=== PATIENT | female | born 1940 | race Caucasian/White ===

== ENCOUNTER 2018-01-21 14:33 | Emergency (ER) | payer OTHER, MEDICAID ==
[2018-01-21] MEDS: SOD CHLORIDE 0.9% 1,000 ML IV (20:41)
[2018-01-21] MEDS: ONDANSETRON 4 MG INJ IV (20:42)
[2018-01-21] MEDS: morphine 4 MG/ML VIAL IV (20:42)
[2018-01-21 20:48] LABS: ADD MAN DIFF? NO
[2018-01-21 21:06] LABS: BASOPHIL # 0.1 10^3/ul (0.0-0.1); BASOPHILS % 0.7 % (0.0-2.0); EOSINOPHILS # 0.1 10^3/ul (0.0-0.5); EOSINOPHILS % 1.8 % (0.0-7.0); HEMATOCRIT 35.4 % (37.0-47.0); HEMOGLOBIN 11.8 g/dl (12.0-16.0); LYMPHOCYTES # 3.5 10^3/ul (0.8-2.9); MEAN CORPUSCULAR HEMOGLOBIN 31.5 pg (29.0-33.0); MEAN CORPUSCULAR HGB CONC 33.3 g/dl (32.0-37.0); MEAN CORPUSCULAR VOLUME 94.4 fl (82.0-101.0); MEAN PLATELET VOLUME 9.9 fl (7.4-10.4); MONOCYTE # 0.5 10^3/ul (0.3-0.9); MONOCYTES % 7.1 % (0.0-11.0); NEUTROPHIL # 2.9 10^3/ul (1.6-7.5); NEUTROPHILS % 40.7 % (39.0-77.0); PLATELET COUNT 172 10^3/UL (140-415); RED BLOOD COUNT 3.75 10^6/ul (4.20-5.40)
[2018-01-21 21:06] LABS: WHITE BLOOD COUNT 7.2 10^3/ul (4.8-10.8)
[2018-01-21 21:15] LABS: ANION GAP 16 (8-16); BLOOD UREA NITROGEN 33 mg/dl (7-20); CALCIUM 9.2 mg/dl (8.4-10.2); CARBON DIOXIDE 22 mmol/L (21-31); CHLORIDE 106 mmol/L (97-110); CREATININE 0.74 mg/dl (0.44-1.00); GLUCOSE 73 mg/dl (70-220); POTASSIUM 4.7 mmol/L (3.5-5.1); SODIUM 139 mmol/L (135-144)
[2018-01-21 21:38] LABS: ADD UMIC YES; UR ASCORBIC ACID NEGATIVE (NEGATIVE); UR BACTERIA FEW /HPF (NONE SEEN); UR BILIRUBIN (Dip) NEGATIVE (NEGATIVE); UR BLOOD (Dip) 1+ mg/dL (NEGATIVE); UR CLARITY SLIGHTLY CLOUDY (CLEAR); UR COLOR YELLOW (YELLOW); UR GLUCOSE (Dip) NEGATIVE (NEGATIVE); UR KETONES (Dip) NEGATIVE (NEGATIVE); UR LEUKOCYTE ESTERASE (Dip) 3+ Leu/ul (NEGATIVE); UR MUCUS FEW /HPF (NONE SEEN); UR NITRITE (Dip) NEGATIVE (NEGATIVE); UR RBC 3 /HPF (0-5); UR SPECIFIC GRAVITY (Dip) 1.019 (1.003-1.030); UR SQUAMOUS EPITHELIAL CELL FEW /HPF (FEW); UR TOTAL PROTEIN (Dip) NEGATIVE (NEGATIVE); UR UROBILINOGEN (Dip) NEGATIVE (NEGATIVE); UR WBC 9 /HPF (0-5)
[2018-01-21] MEDS: NITROFURANTOIN (SR) 100 MG CAP PO (22:20)
== END 2018-01-21 23:22 | disposition home or self-care (01) ==
LOC: E/R 14:33
DX: N30.00 Acute cystitis without hematuria (principal); R53.81 Other malaise; R53.83 Other fatigue
CPT/HCPCS: 36415; 80048; 81001; 85025; 96374; 96375; 99284-25

== ENCOUNTER 2018-03-15 21:29 | Inpatient (IN) | payer OTHER ==
[2018-03-16] MEDS ORDERED: ONDANSETRON 4 MG INJ IV
[2018-03-16] MEDS: SOD CHLORIDE 0.9% 1,000 ML IV ×4 (00:24→21:53)
[2018-03-16] MEDS ORDERED: HYDROCODONE/APAP (5/325) TAB PO (00:30)
[2018-03-16 05:31] LABS: ADD MAN DIFF? NO
[2018-03-16 05:36] LABS: WHITE BLOOD COUNT 7.4 10^3/ul (4.8-10.8)
[2018-03-16 05:36] LABS: BASOPHILS % 0.5 % (0.0-2.0); EOSINOPHILS # 0.2 10^3/ul (0.0-0.5); EOSINOPHILS % 2.3 % (0.0-7.0); HEMATOCRIT 38.7 % (37.0-47.0); HEMOGLOBIN 12.6 g/dl (12.0-16.0); LYMPHOCYTES # 2.5 10^3/ul (0.8-2.9); LYMPHOCYTES % 33.9 % (15.0-51.0); MEAN CORPUSCULAR HEMOGLOBIN 30.1 pg (29.0-33.0); MEAN CORPUSCULAR HGB CONC 32.6 g/dl (32.0-37.0); MEAN CORPUSCULAR VOLUME 92.4 fl (82.0-101.0); MEAN PLATELET VOLUME 9.8 fl (7.4-10.4); MONOCYTE # 0.6 10^3/ul (0.3-0.9); MONOCYTES % 7.5 % (0.0-11.0); NEUTROPHIL # 4.1 10^3/ul (1.6-7.5); NEUTROPHILS % 55.4 % (39.0-77.0); PLATELET COUNT 191 10^3/UL (140-415); RED BLOOD COUNT 4.19 10^6/ul (4.20-5.40); RED CELL DISTRIBUTION WIDTH 13.5 % (11.5-14.5)
[2018-03-16] MEDS: PANTOPRAZOLE (EC) 40 MG TAB PO (05:49)
[2018-03-16] MEDS: morphine 2 MG INJ IV ×4 (05:50→17:53)
[2018-03-16 06:05] LABS: ANION GAP 12 (8-16); BLOOD UREA NITROGEN 32 mg/dl (7-20); CALCIUM 8.4 mg/dl (8.4-10.2); CARBON DIOXIDE 21 mmol/L (21-31); CHLORIDE 112 mmol/L (97-110); CREATININE 0.87 mg/dl (0.44-1.00); GLUCOSE 73 mg/dl (70-220); MAGNESIUM 1.9 mg/dl (1.7-2.5); PHOSPHORUS 3.8 mg/dl (2.5-4.9); SODIUM 141 mmol/L (135-144)
[2018-03-16] MEDS: predniSONE 2.5 MG TAB PO (09:18)
[2018-03-16] MEDS: HYDROXYCHLOROQUINE 200 MG TAB PO (09:18)
[2018-03-16] MEDS: CHOLECALCIFEROL 1,000 UNIT TAB PO (09:18)
[2018-03-16] MEDS: CALCIUM/VITAMIN D (500/200) TAB PO ×2 (09:18→20:28)
[2018-03-16] MEDS: ENOXAPARIN 30 MG/0.3 ML SYG SC (09:22)
[2018-03-16 11:06] LABS: HEMOGLOBIN A1C 5.5 % (0-5.9)
[2018-03-16] MEDS ORDERED: BISACODYL (EC) 5 MG TAB PO (11:30)
[2018-03-16 12:17] LABS: ADD UMIC YES; UR ASCORBIC ACID NEGATIVE (NEGATIVE); UR BACTERIA FEW /HPF (NONE SEEN); UR BILIRUBIN (Dip) NEGATIVE (NEGATIVE); UR BLOOD (Dip) 1+ mg/dL (NEGATIVE); UR CLARITY SLIGHTLY CLOUDY (CLEAR); UR COLOR YELLOW (YELLOW); UR GLUCOSE (Dip) NEGATIVE (NEGATIVE); UR KETONES (Dip) NEGATIVE (NEGATIVE); UR LEUKOCYTE ESTERASE (Dip) 3+ Leu/ul (NEGATIVE); UR NITRITE (Dip) NEGATIVE (NEGATIVE); UR RBC 17 /HPF (0-5); UR SPECIFIC GRAVITY (Dip) 1.015 (1.003-1.030); UR SQUAMOUS EPITHELIAL CELL FEW /HPF (FEW); UR TOTAL PROTEIN (Dip) NEGATIVE (NEGATIVE); UR UROBILINOGEN (Dip) NEGATIVE (NEGATIVE); UR WBC 21 /HPF (0-5)
[2018-03-16 13:12] LABS: CHOLESTEROL 144 mg/dl (100-200)
[2018-03-16 13:12] LABS: CHOL/HDL RATIO 2.2 RATIO; HDL CHOLESTEROL 65 mg/dl (33-92); LDL CHOLESTEROL,CALCULATED 62 mg/dl; TRIGLYCERIDES 85 mg/dl (0-149)
[2018-03-16] MEDS: CEFTRIAXONE 1 GM/50 ML (PMX) 50 ML IVPB (13:16)
[2018-03-16] MEDS: POLYETHYLENE GLYCOL 17 GM PACKET PO ×2 (13:16→20:28)
[2018-03-16] MEDS ORDERED: HEPARIN 5,000 UNIT/0.5 ML VIAL SC (14:00)
[2018-03-16] MEDS: morphine LIQ (10 MG/5 ML) CUP PO ×2 (20:28→21:53)
[2018-03-17] MEDS: morphine LIQ (10 MG/5 ML) CUP PO ×5 (05:30→23:36)
[2018-03-17] MEDS: PANTOPRAZOLE (EC) 40 MG TAB PO (05:30)
[2018-03-17 05:33] LABS: ADD MAN DIFF? NO
[2018-03-17 05:37] LABS: WHITE BLOOD COUNT 6.6 10^3/ul (4.8-10.8)
[2018-03-17 05:37] LABS: BASOPHILS % 0.5 % (0.0-2.0); EOSINOPHILS # 0.2 10^3/ul (0.0-0.5); EOSINOPHILS % 2.7 % (0.0-7.0); HEMATOCRIT 37.8 % (37.0-47.0); HEMOGLOBIN 12.3 g/dl (12.0-16.0); LYMPHOCYTES # 2.4 10^3/ul (0.8-2.9); LYMPHOCYTES % 36.4 % (15.0-51.0); MEAN CORPUSCULAR HEMOGLOBIN 30.7 pg (29.0-33.0); MEAN CORPUSCULAR HGB CONC 32.5 g/dl (32.0-37.0); MEAN CORPUSCULAR VOLUME 94.3 fl (82.0-101.0); MEAN PLATELET VOLUME 9.6 fl (7.4-10.4); MONOCYTE # 0.6 10^3/ul (0.3-0.9); MONOCYTES % 8.3 % (0.0-11.0); NEUTROPHIL # 3.4 10^3/ul (1.6-7.5); NEUTROPHILS % 51.8 % (39.0-77.0); PLATELET COUNT 183 10^3/UL (140-415); RED BLOOD COUNT 4.01 10^6/ul (4.20-5.40); RED CELL DISTRIBUTION WIDTH 13.1 % (11.5-14.5)
[2018-03-17 05:57] LABS: PHOSPHORUS 2.4 mg/dl (2.5-4.9)
[2018-03-17 05:57] LABS: MAGNESIUM 1.6 mg/dl (1.7-2.5)
[2018-03-17 06:10] LABS: ANION GAP 11 (8-16); BLOOD UREA NITROGEN 13 mg/dl (7-20); CALCIUM 8.6 mg/dl (8.4-10.2); CARBON DIOXIDE 21 mmol/L (21-31); CHLORIDE 112 mmol/L (97-110); CREATININE 0.59 mg/dl (0.44-1.00); GLUCOSE 73 mg/dl (70-220); POTASSIUM 4.1 mmol/L (3.5-5.1); SODIUM 140 mmol/L (135-144)
[2018-03-17] MEDS: CALCIUM/VITAMIN D (500/200) TAB PO ×2 (09:32→20:13)
[2018-03-17] MEDS: POLYETHYLENE GLYCOL 17 GM PACKET PO ×2 (09:32→20:13)
[2018-03-17] MEDS: predniSONE 2.5 MG TAB PO (09:32)
[2018-03-17] MEDS: HYDROXYCHLOROQUINE 200 MG TAB PO (09:33)
[2018-03-17] MEDS: CHOLECALCIFEROL 1,000 UNIT TAB PO (09:33)
[2018-03-17] MEDS: ENOXAPARIN 30 MG/0.3 ML SYG SC (09:41)
[2018-03-17] MEDS: SOD CHLORIDE 0.9% 1,000 ML IV ×2 (09:42→16:00)
[2018-03-17] MEDS: AMLODIPINE 2.5 MG TAB PO (11:30)
[2018-03-17] MEDS: MAGNESIUM SULFATE 2 GM/50 ML 50 ML IVPB (14:42)
[2018-03-18] MEDS: SOD CHLORIDE 0.9% 1,000 ML IV ×3 (02:00→12:59)
[2018-03-18] MEDS: morphine LIQ (10 MG/5 ML) CUP PO ×4 (02:49→13:56)
[2018-03-18] MEDS: PANTOPRAZOLE (EC) 40 MG TAB PO (05:52)
[2018-03-18 06:51] LABS: ADD MAN DIFF? NO
[2018-03-18 07:02] LABS: BASOPHILS % 0.3 % (0.0-2.0); EOSINOPHILS # 0.2 10^3/ul (0.0-0.5); EOSINOPHILS % 3.2 % (0.0-7.0); HEMATOCRIT 37.2 % (37.0-47.0); HEMOGLOBIN 12.1 g/dl (12.0-16.0); LYMPHOCYTES # 2.9 10^3/ul (0.8-2.9); LYMPHOCYTES % 39.2 % (15.0-51.0); MEAN CORPUSCULAR HEMOGLOBIN 29.9 pg (29.0-33.0); MEAN CORPUSCULAR HGB CONC 32.5 g/dl (32.0-37.0); MEAN CORPUSCULAR VOLUME 91.9 fl (82.0-101.0); MEAN PLATELET VOLUME 9.9 fl (7.4-10.4); MONOCYTE # 0.6 10^3/ul (0.3-0.9); MONOCYTES % 8.5 % (0.0-11.0); NEUTROPHIL # 3.6 10^3/ul (1.6-7.5); NEUTROPHILS % 48.4 % (39.0-77.0); PLATELET COUNT 192 10^3/UL (140-415); RED BLOOD COUNT 4.05 10^6/ul (4.20-5.40); RED CELL DISTRIBUTION WIDTH 12.9 % (11.5-14.5)
[2018-03-18 07:02] LABS: WHITE BLOOD COUNT 7.4 10^3/ul (4.8-10.8)
[2018-03-18 07:19] LABS: MAGNESIUM 1.9 mg/dl (1.7-2.5)
[2018-03-18 07:19] LABS: PHOSPHORUS 2.5 mg/dl (2.5-4.9)
[2018-03-18 07:22] LABS: ANION GAP 12 (8-16); BLOOD UREA NITROGEN 5 mg/dl (7-20); CALCIUM 8.5 mg/dl (8.4-10.2); CARBON DIOXIDE 26 mmol/L (21-31); CHLORIDE 108 mmol/L (97-110); CREATININE 0.57 mg/dl (0.44-1.00); GLUCOSE 75 mg/dl (70-220); POTASSIUM 3.8 mmol/L (3.5-5.1); SODIUM 142 mmol/L (135-144)
[2018-03-18] MEDS: POLYETHYLENE GLYCOL 17 GM PACKET PO (08:19)
[2018-03-18] MEDS: AMLODIPINE 2.5 MG TAB PO (08:19)
[2018-03-18] MEDS: CALCIUM/VITAMIN D (500/200) TAB PO (08:19)
[2018-03-18] MEDS: HYDROXYCHLOROQUINE 200 MG TAB PO (08:19)
[2018-03-18] MEDS: predniSONE 2.5 MG TAB PO (08:19)
[2018-03-18] MEDS: CHOLECALCIFEROL 1,000 UNIT TAB PO (08:19)
[2018-03-18] MEDS: ENOXAPARIN 30 MG/0.3 ML SYG SC (08:22)
[2018-03-20] MEDS ORDERED: ALENDRONATE 70 MG TAB PO (07:00)
== END 2018-03-18 16:50 | disposition home health service (06) | DRG 683 ==
LOC: PP2 21:29
DX: N17.9 Acute kidney failure, unspecified (principal); Z68.41 Body mass index [BMI] 40.0-44.9, adult; E66.9 Obesity, unspecified; M06.9 Rheumatoid arthritis, unspecified; M81.0 Age-related osteoporosis without current pathological fracture; Z87.442 Personal history of urinary calculi; E78.5 Hyperlipidemia, unspecified; I10 Essential (primary) hypertension; R82.79 Other abnormal findings on microbiological examination of urine; G89.29 Other chronic pain
CPT/HCPCS: 80048; 80061; 81001; 83036; 83735; 84100; 85025; 87086; 97162

== ENCOUNTER 2018-07-17 15:29 | Emergency (ER) | payer OTHER ==
[2018-07-17] MEDS: CEFTRIAXONE 1 GM/50 ML (PMX) 50 ML IVPB (17:00)
[2018-07-17] MEDS: morphine 4 MG/ML VIAL IV (17:00)
[2018-07-17] MEDS: ONDANSETRON 4 MG INJ IV (17:01)
[2018-07-17] MEDS: SOD CHLORIDE 0.9% 500 ML IV (17:01)
[2018-07-17 17:18] LABS: ADD MAN DIFF? NO
[2018-07-17 17:19] LABS: WHITE BLOOD COUNT 7.6 10^3/ul (4.8-10.8)
[2018-07-17 17:19] LABS: BASOPHILS % 0.4 % (0.0-2.0); EOSINOPHILS # 0.1 10^3/ul (0.0-0.5); EOSINOPHILS % 1.2 % (0.0-7.0); HEMATOCRIT 38.6 % (37.0-47.0); HEMOGLOBIN 13.2 g/dl (12.0-16.0); LYMPHOCYTES # 2.3 10^3/ul (0.8-2.9); LYMPHOCYTES % 30.6 % (15.0-51.0); MEAN CORPUSCULAR HEMOGLOBIN 31.7 pg (29.0-33.0); MEAN CORPUSCULAR HGB CONC 34.2 g/dl (32.0-37.0); MEAN CORPUSCULAR VOLUME 92.6 fl (82.0-101.0); MEAN PLATELET VOLUME 9.2 fl (7.4-10.4); MONOCYTE # 0.7 10^3/ul (0.3-0.9); MONOCYTES % 9.2 % (0.0-11.0); NEUTROPHIL # 4.4 10^3/ul (1.6-7.5); NEUTROPHILS % 58.1 % (39.0-77.0); PLATELET COUNT 186 10^3/UL (140-415); RED BLOOD COUNT 4.17 10^6/ul (4.20-5.40); RED CELL DISTRIBUTION WIDTH 13.3 % (11.5-14.5)
[2018-07-17 17:23] LABS: ADD UMIC YES; UR ASCORBIC ACID NEGATIVE (NEGATIVE); UR BILIRUBIN (Dip) NEGATIVE (NEGATIVE); UR BLOOD (Dip) 1+ mg/dL (NEGATIVE); UR CLARITY SLIGHTLY CLOUDY (CLEAR); UR COLOR YELLOW (YELLOW); UR GLUCOSE (Dip) NEGATIVE (NEGATIVE); UR KETONES (Dip) NEGATIVE (NEGATIVE); UR LEUKOCYTE ESTERASE (Dip) NEGATIVE Leu/ul (NEGATIVE); UR MUCUS FEW /HPF (NONE SEEN); UR NITRITE (Dip) NEGATIVE (NEGATIVE); UR RBC 6 /HPF (0-5); UR SPECIFIC GRAVITY (Dip) 1.013 (1.003-1.030); UR SQUAMOUS EPITHELIAL CELL FEW /HPF (FEW); UR TOTAL PROTEIN (Dip) NEGATIVE (NEGATIVE); UR UROBILINOGEN (Dip) 1+ mg/dL (NEGATIVE); UR WBC 4 /HPF (0-5)
[2018-07-17 17:38] LABS: ALANINE AMINOTRANSFERASE 23 IU/L (13-69); ALBUMIN 3.3 g/dl (3.3-4.9); ALBUMIN/GLOBULIN RATIO 1.13; ALKALINE PHOSPHATASE 52 IU/L (42-121); ANION GAP 6 (5-13); ASPARTATE AMINO TRANSFERASE 27 IU/L (15-46); BILIRUBIN,INDIRECT 0.6 mg/dl (0-1.1); BILIRUBIN,TOTAL 0.6 mg/dl (0.2-1.3); BLOOD UREA NITROGEN 20 mg/dl (7-20); CALCIUM 9.4 mg/dl (8.4-10.2); CARBON DIOXIDE 26 mmol/L (21-31); CHLORIDE 105 mmol/L (97-110); CREATININE 0.55 mg/dl (0.44-1.00); GLUCOSE 105 mg/dl (70-220); INR 0.93; LIPASE 53 U/L (23-300); POTASSIUM 3.6 mmol/L (3.5-5.1); PROTIME 12.5 Sec (11.9-14.9); SODIUM 137 mmol/L (135-144); TOTAL PROTEIN 6.2 g/dl (6.1-8.1)
[2018-07-17 17:39] LABS: PARTIAL THROMBOPLASTIN TIME 25.5 Sec (23.0-35.0)
[2018-07-17 17:50] LABS: TROPONIN-I < 0.012 ng/ml (0.000-0.120)
== END 2018-07-17 19:06 | disposition home or self-care (01) ==
LOC: E/R 15:29
DX: M80.00XA Age-related osteoporosis with current pathological fracture, unspecified site, initial encounter for fracture (principal); G89.29 Other chronic pain; N39.0 Urinary tract infection, site not specified; E86.0 Dehydration; I10 Essential (primary) hypertension
CPT/HCPCS: 36415; 51702; 71045; 80053; 81001; 83690; 84484; 85025; 85610; 85730; 87086; 93005; 96374; 96375; 99285-25

== ENCOUNTER 2018-11-09 13:18 | Emergency (ER) | payer OTHER ==
[2018-11-09] MEDS: KETOROLAC 30 MG INJ IM (13:26)
[2018-11-09] MEDS: ONDANSETRON (ODT) 4 MG TAB ODT (13:45)
[2018-11-09] MEDS: HYDROCODONE/APAP (10/325) TAB PO (14:00)
== END 2018-11-09 19:25 | disposition home or self-care (01) ==
LOC: E/R 13:18
DX: R51 Headache (principal); I10 Essential (primary) hypertension
CPT/HCPCS: 70450; 96372; 99285-25

== ENCOUNTER 2018-11-12 13:21 | Inpatient (IN) | payer OTHER ==
[2018-11-12] MEDS ORDERED: NACL 0.9% 3 ML SYG IV (14:30)
[2018-11-12] MEDS ORDERED: ONDANSETRON 4 MG INJ IV ×2 (14:30)
[2018-11-12] MEDS ORDERED: ACETAMINOPHEN 325 MG TAB PO ×2 (14:30)
[2018-11-12 14:43] LABS: ADD MAN DIFF? NO
[2018-11-12 14:46] LABS: WHITE BLOOD COUNT 8.5 10^3/ul (4.8-10.8)
[2018-11-12 14:46] LABS: BASOPHIL # 0.1 10^3/ul (0.0-0.1); BASOPHILS % 0.7 % (0.0-2.0); EOSINOPHILS # 0.1 10^3/ul (0.0-0.5); EOSINOPHILS % 0.8 % (0.0-7.0); HEMATOCRIT 41.6 % (37.0-47.0); HEMOGLOBIN 13.3 g/dl (12.0-16.0); LYMPHOCYTES # 2.6 10^3/ul (0.8-2.9); LYMPHOCYTES % 30.5 % (15.0-51.0); MEAN CORPUSCULAR HEMOGLOBIN 30.8 pg (29.0-33.0); MEAN CORPUSCULAR VOLUME 96.3 fl (82.0-101.0); MEAN PLATELET VOLUME 8.9 fl (7.4-10.4); MONOCYTE # 0.8 10^3/ul (0.3-0.9); MONOCYTES % 9.2 % (0.0-11.0); NEUTROPHIL # 4.8 10^3/ul (1.6-7.5); PLATELET COUNT 190 10^3/UL (140-415); RED BLOOD COUNT 4.32 10^6/ul (4.20-5.40); RED CELL DISTRIBUTION WIDTH 13.9 % (11.5-14.5)
[2018-11-12] MEDS: METOCLOPRAMIDE 10 MG INJ IV (14:59)
[2018-11-12] MEDS: KETOROLAC 30 MG INJ IV (14:59)
[2018-11-12 15:05] LABS: INR 0.85; PROTIME 11.7 Sec (11.9-14.9); PT RATIO 0.9
[2018-11-12 15:06] LABS: ANION GAP 7 (5-13); BLOOD UREA NITROGEN 19 mg/dl (7-20); CALCIUM 9.4 mg/dl (8.4-10.2); CARBON DIOXIDE 24 mmol/L (21-31); CHLORIDE 105 mmol/L (97-110); CREATININE 0.73 mg/dl (0.44-1.00); GLUCOSE 108 mg/dl (70-220); PARTIAL THROMBOPLASTIN TIME 27.7 Sec (23.0-35.0); POTASSIUM 4.1 mmol/L (3.5-5.1); SODIUM 136 mmol/L (135-144)
[2018-11-12] MEDS: SOD CHLORIDE 0.9% 500 ML IV (15:09)
[2018-11-12 15:29] LABS: ADD UMIC YES; UR ASCORBIC ACID NEGATIVE (NEGATIVE); UR BACTERIA FEW /HPF (NONE SEEN); UR BILIRUBIN (Dip) 2+ mg/dL (NEGATIVE); UR BLOOD (Dip) 1+ mg/dL (NEGATIVE); UR CLARITY SLIGHTLY CLOUDY (CLEAR); UR COLOR AMBER (YELLOW); UR GLUCOSE (Dip) NEGATIVE (NEGATIVE); UR KETONES (Dip) TRACE mg/dL (NEGATIVE); UR LEUKOCYTE ESTERASE (Dip) NEGATIVE Leu/ul (NEGATIVE); UR MUCUS MANY /HPF (NONE SEEN); UR NITRITE (Dip) POSITIVE (NEGATIVE); UR RBC 6 /HPF (0-5); UR SPECIFIC GRAVITY (Dip) 1.029 (1.003-1.030); UR SQUAMOUS EPITHELIAL CELL FEW /HPF (FEW); UR TOTAL PROTEIN (Dip) NEGATIVE (NEGATIVE); UR UROBILINOGEN (Dip) NEGATIVE (NEGATIVE); UR WBC 2 /HPF (0-5)
[2018-11-12] MEDS: FENTAnyl 50 MCG/ML VIAL IV (15:30)
[2018-11-12] MEDS ORDERED: GUAIFENESIN/DM 5ML CUP PO (17:00)
[2018-11-12] MEDS: HYDROCODONE/APAP (5/325) TAB PO ×2 (17:54→21:54)
[2018-11-12] MEDS: SENNA TAB PO (21:53)
[2018-11-13] MEDS: HYDROCODONE/APAP (5/325) TAB PO ×5 (02:01→21:39)
[2018-11-13] MEDS: PANTOPRAZOLE (EC) 40 MG TAB PO (06:07)
[2018-11-13 06:59] LABS: ADD MAN DIFF? NO
[2018-11-13 07:07] LABS: BASOPHILS % 0.5 % (0.0-2.0); EOSINOPHILS # 0.1 10^3/ul (0.0-0.5); EOSINOPHILS % 1.2 % (0.0-7.0); HEMATOCRIT 37.2 % (37.0-47.0); HEMOGLOBIN 12.1 g/dl (12.0-16.0); LYMPHOCYTES # 2.7 10^3/ul (0.8-2.9); LYMPHOCYTES % 33.3 % (15.0-51.0); MEAN CORPUSCULAR HEMOGLOBIN 30.8 pg (29.0-33.0); MEAN CORPUSCULAR HGB CONC 32.5 g/dl (32.0-37.0); MEAN CORPUSCULAR VOLUME 94.7 fl (82.0-101.0); MEAN PLATELET VOLUME 9.2 fl (7.4-10.4); MONOCYTE # 0.6 10^3/ul (0.3-0.9); MONOCYTES % 7.7 % (0.0-11.0); NEUTROPHIL # 4.5 10^3/ul (1.6-7.5); NEUTROPHILS % 55.8 % (39.0-77.0); PLATELET COUNT 210 10^3/UL (140-415); RED BLOOD COUNT 3.93 10^6/ul (4.20-5.40); RED CELL DISTRIBUTION WIDTH 13.7 % (11.5-14.5)
[2018-11-13 07:07] LABS: WHITE BLOOD COUNT 8.1 10^3/ul (4.8-10.8)
[2018-11-13 07:30] LABS: ALANINE AMINOTRANSFERASE 25 IU/L (13-69); ALBUMIN 3.1 g/dl (3.3-4.9); ALBUMIN/GLOBULIN RATIO 1.14; ALKALINE PHOSPHATASE 91 IU/L (42-121); ANION GAP 8 (5-13); ASPARTATE AMINO TRANSFERASE 35 IU/L (15-46); BILIRUBIN,INDIRECT 0.5 mg/dl (0-1.1); BILIRUBIN,TOTAL 0.5 mg/dl (0.2-1.3); BLOOD UREA NITROGEN 22 mg/dl (7-20); CALCIUM 8.9 mg/dl (8.4-10.2); CARBON DIOXIDE 25 mmol/L (21-31); CHLORIDE 104 mmol/L (97-110); CHOL/HDL RATIO 2.5 RATIO; CHOLESTEROL 148 mg/dl (100-200); CREATININE 0.66 mg/dl (0.44-1.00); GLUCOSE 91 mg/dl (70-220); HDL CHOLESTEROL 57 mg/dl (33-92); LDL CHOLESTEROL,CALCULATED 69 mg/dl; MAGNESIUM 1.9 mg/dl (1.7-2.5); PHOSPHORUS 3.4 mg/dl (2.5-4.9); SODIUM 137 mmol/L (135-144); TOTAL PROTEIN 5.8 g/dl (6.1-8.1); TRIGLYCERIDES 111 mg/dl (0-149)
[2018-11-13 07:30] LABS: HEMOGLOBIN A1C 5.3 % (0-5.9)
[2018-11-13] MEDS: predniSONE 5 MG TAB PO (09:02)
[2018-11-13] MEDS: AMLODIPINE 2.5 MG TAB PO (09:02)
[2018-11-13] MEDS: HYDROXYCHLOROQUINE 200 MG TAB PO (09:02)
[2018-11-13] MEDS: morphine 2 MG INJ IV (15:35)
[2018-11-13] MEDS: SENNA TAB PO (21:39)
[2018-11-14] MEDS: HYDROCODONE/APAP (5/325) TAB PO ×2 (02:36→06:31)
[2018-11-14] MEDS: morphine 2 MG INJ IV ×2 (04:39→07:51)
[2018-11-14] MEDS: PANTOPRAZOLE (EC) 40 MG TAB PO (06:31)
[2018-11-14] MEDS: IBUPROFEN 400 MG TAB PO ×2 (08:43→16:11)
[2018-11-14] MEDS: predniSONE 5 MG TAB PO (08:43)
[2018-11-14] MEDS: AMLODIPINE 2.5 MG TAB PO (08:43)
[2018-11-14] MEDS: KETOROLAC 30 MG INJ IV (12:20)
[2018-11-14] MEDS: GABAPENTIN 100 MG CAP PO ×2 (12:20→20:58)
[2018-11-14] MEDS: HYDROXYCHLOROQUINE 200 MG TAB PO (12:20)
[2018-11-14] MEDS: MECLIZINE 12.5 MG TAB PO ×3 (12:20→23:30)
[2018-11-14] MEDS: predniSONE 20 MG TAB PO (12:21)
[2018-11-14] MEDS: HEPARIN 5,000 UNIT/1 ML VIAL SC ×2 (12:32→21:03)
[2018-11-14] MEDS: HYDROCODONE/APAP (10/325) TAB PO (14:37)
[2018-11-14] MEDS: SENNA TAB PO (20:58)
[2018-11-14] MEDS: morphine (ER) 15 MG TAB PO (20:58)
[2018-11-15] MEDS: HYDROCODONE/APAP (10/325) TAB PO ×2 (03:21→12:32)
[2018-11-15] MEDS: PANTOPRAZOLE (EC) 40 MG TAB PO (05:50)
[2018-11-15] MEDS: MECLIZINE 12.5 MG TAB PO ×4 (05:50→22:45)
[2018-11-15] MEDS: HYDROXYCHLOROQUINE 200 MG TAB PO (08:45)
[2018-11-15] MEDS: AMLODIPINE 2.5 MG TAB PO (08:45)
[2018-11-15] MEDS: morphine (ER) 15 MG TAB PO (08:45)
[2018-11-15] MEDS: GABAPENTIN 100 MG CAP PO ×3 (08:45→22:46)
[2018-11-15] MEDS: predniSONE 20 MG TAB PO (08:46)
[2018-11-15] MEDS: ENOXAPARIN 40 MG/0.4 ML SYG SC (08:51)
[2018-11-15] MEDS: IBUPROFEN 400 MG TAB PO (09:52)
[2018-11-15 10:41] LABS: ADD MAN DIFF? NO
[2018-11-15 10:43] LABS: BASOPHILS % 0.3 % (0.0-2.0); EOSINOPHILS % 0.2 % (0.0-7.0); HEMATOCRIT 35.3 % (37.0-47.0); HEMOGLOBIN 11.7 g/dl (12.0-16.0); LYMPHOCYTES # 1.9 10^3/ul (0.8-2.9); MEAN CORPUSCULAR HEMOGLOBIN 30.9 pg (29.0-33.0); MEAN CORPUSCULAR HGB CONC 33.1 g/dl (32.0-37.0); MEAN CORPUSCULAR VOLUME 93.1 fl (82.0-101.0); MEAN PLATELET VOLUME 8.9 fl (7.4-10.4); MONOCYTE # 0.7 10^3/ul (0.3-0.9); MONOCYTES % 6.9 % (0.0-11.0); NEUTROPHILS % 72.1 % (39.0-77.0); PLATELET COUNT 245 10^3/UL (140-415); RED BLOOD COUNT 3.79 10^6/ul (4.20-5.40); RED CELL DISTRIBUTION WIDTH 13.4 % (11.5-14.5)
[2018-11-15 10:43] LABS: WHITE BLOOD COUNT 9.7 10^3/ul (4.8-10.8)
[2018-11-15] MEDS: KETOROLAC 30 MG INJ IV (10:56)
[2018-11-15 11:00] LABS: ALANINE AMINOTRANSFERASE 22 IU/L (13-69); ALBUMIN/GLOBULIN RATIO 1.07; ALKALINE PHOSPHATASE 77 IU/L (42-121); ANION GAP 8 (5-13); ASPARTATE AMINO TRANSFERASE 30 IU/L (15-46); BILIRUBIN,INDIRECT 0.4 mg/dl (0-1.1); BILIRUBIN,TOTAL 0.4 mg/dl (0.2-1.3); BLOOD UREA NITROGEN 18 mg/dl (7-20); CALCIUM 9.4 mg/dl (8.4-10.2); CARBON DIOXIDE 26 mmol/L (21-31); CHLORIDE 104 mmol/L (97-110); CREATININE 0.55 mg/dl (0.44-1.00); GLUCOSE 117 mg/dl (70-220); POTASSIUM 4.3 mmol/L (3.5-5.1); SODIUM 138 mmol/L (135-144); TOTAL PROTEIN 5.8 g/dl (6.1-8.1)
[2018-11-15] MEDS: HYDROmorphONE 4 MG TAB PO (14:44)
[2018-11-15] MEDS: POLYETHYLENE GLYCOL 17 GM PACKET PO (22:45)
[2018-11-15] MEDS: SENNA TAB PO (22:46)
[2018-11-15] MEDS: morphine (ER) 30 MG TAB PO (22:46)
[2018-11-15] MEDS: DOCUSATE SODIUM 100 MG CAP PO (22:46)
[2018-11-16] MEDS: HYDROmorphONE 4 MG TAB PO ×2 (03:27→07:08)
[2018-11-16] MEDS: MECLIZINE 12.5 MG TAB PO (03:27)
[2018-11-16] MEDS: PANTOPRAZOLE (EC) 40 MG TAB PO (07:08)
[2018-11-16] MEDS ORDERED: POLYETHYLENE GLYCOL 17 GM PACKET PO (09:00)
[2018-11-16] MEDS: morphine (ER) 30 MG TAB PO ×2 (09:00→09:49)
[2018-11-16] MEDS: GABAPENTIN 100 MG CAP PO ×3 (09:48→20:30)
[2018-11-16] MEDS: DOCUSATE SODIUM 100 MG CAP PO ×2 (09:48→20:30)
[2018-11-16] MEDS: predniSONE 20 MG TAB PO (09:49)
[2018-11-16] MEDS: AMLODIPINE 2.5 MG TAB PO (09:49)
[2018-11-16] MEDS: POLYETHYLENE GLYCOL 17 GM PACKET PO (09:49)
[2018-11-16] MEDS: ENOXAPARIN 40 MG/0.4 ML SYG SC (09:54)
[2018-11-16] MEDS: NEOMYC/POLYMYX/HC 10 ML OTIC SUSP LEFT EAR ×2 (10:30→13:41)
[2018-11-16] MEDS: KETOROLAC 15 MG INJ IV ×2 (10:44→20:34)
[2018-11-16] MEDS: CIPROFLOXACIN HCL OTIC DROP 0.25 ML RIGHT EAR ×2 (11:00→20:36)
[2018-11-16] MEDS: NEOMYC/POLYMYX/HC 10 ML OTIC SUSP RIGHT EAR ×3 (13:00→20:36)
[2018-11-16] MEDS: HYDROXYCHLOROQUINE 200 MG TAB PO (13:38)
[2018-11-16] MEDS ORDERED: LORAZEPAM 2 MG INJ IV (14:00)
[2018-11-16] MEDS: SENNA TAB PO (20:30)
[2018-11-16] MEDS: traMADol 50 MG TAB PO (23:09)
[2018-11-17] MEDS: traMADol 50 MG TAB PO ×3 (06:00→21:18)
[2018-11-17] MEDS: PANTOPRAZOLE (EC) 40 MG TAB PO (06:00)
[2018-11-17] MEDS: GABAPENTIN 100 MG CAP PO ×3 (08:15→21:19)
[2018-11-17] MEDS: DOCUSATE SODIUM 100 MG CAP PO ×2 (08:15→21:00)
[2018-11-17] MEDS: HYDROXYCHLOROQUINE 200 MG TAB PO (08:16)
[2018-11-17] MEDS: AMLODIPINE 2.5 MG TAB PO (08:17)
[2018-11-17] MEDS: POLYETHYLENE GLYCOL 17 GM PACKET PO (08:17)
[2018-11-17] MEDS: CIPROFLOXACIN HCL OTIC DROP 0.25 ML RIGHT EAR ×2 (08:17→21:00)
[2018-11-17] MEDS: ENOXAPARIN 40 MG/0.4 ML SYG SC (08:19)
[2018-11-17] MEDS: NEOMYC/POLYMYX/HC 10 ML OTIC SUSP RIGHT EAR ×4 (08:20→21:00)
[2018-11-17] MEDS: KETOROLAC 15 MG INJ IV ×3 (08:35→23:48)
[2018-11-17] MEDS: SENNA TAB PO (21:00)
[2018-11-18] MEDS: traMADol 50 MG TAB PO ×5 (03:31→22:53)
[2018-11-18] MEDS: PANTOPRAZOLE (EC) 40 MG TAB PO (05:48)
[2018-11-18] MEDS: GABAPENTIN 100 MG CAP PO ×3 (08:14→21:46)
[2018-11-18] MEDS: HYDROXYCHLOROQUINE 200 MG TAB PO (08:14)
[2018-11-18] MEDS: AMLODIPINE 2.5 MG TAB PO (08:14)
[2018-11-18] MEDS: DOCUSATE SODIUM 100 MG CAP PO ×2 (08:15→21:45)
[2018-11-18] MEDS: POLYETHYLENE GLYCOL 17 GM PACKET PO ×2 (08:15→08:22)
[2018-11-18] MEDS: KETOROLAC 15 MG INJ IV ×2 (08:16→18:17)
[2018-11-18] MEDS: ENOXAPARIN 40 MG/0.4 ML SYG SC (08:22)
[2018-11-18] MEDS: CIPROFLOXACIN HCL OTIC DROP 0.25 ML RIGHT EAR ×2 (08:32→21:46)
[2018-11-18] MEDS: NEOMYC/POLYMYX/HC 10 ML OTIC SUSP RIGHT EAR ×4 (08:38→21:47)
[2018-11-18] MEDS: PREDNISOLONE ACET 1% 5 ML OPH RIGHT EAR ×2 (13:51→21:46)
[2018-11-18] MEDS: SENNA TAB PO (21:45)
[2018-11-19] MEDS: KETOROLAC 15 MG INJ IV ×3 (00:19→15:33)
[2018-11-19] MEDS: ACETAMINOPHEN 1000MG/100ML IV 100 ML IVPB (03:40)
[2018-11-19] MEDS: PANTOPRAZOLE (EC) 40 MG TAB PO (06:10)
[2018-11-19] MEDS: traMADol 50 MG TAB PO ×2 (06:11→12:16)
[2018-11-19] MEDS: HYDROXYCHLOROQUINE 200 MG TAB PO (09:11)
[2018-11-19] MEDS: GABAPENTIN 100 MG CAP PO ×2 (09:12→13:34)
[2018-11-19] MEDS: POLYETHYLENE GLYCOL 17 GM PACKET PO (09:12)
[2018-11-19] MEDS: DOCUSATE SODIUM 100 MG CAP PO (09:12)
[2018-11-19] MEDS: ENOXAPARIN 40 MG/0.4 ML SYG SC (09:14)
[2018-11-19] MEDS: NEOMYC/POLYMYX/HC 10 ML OTIC SUSP RIGHT EAR ×2 (09:15→13:35)
[2018-11-19] MEDS: PREDNISOLONE ACET 1% 5 ML OPH RIGHT EAR (09:15)
[2018-11-19] MEDS: AMLODIPINE 2.5 MG TAB PO (09:43)
[2018-11-19] MEDS: CIPROFLOXACIN HCL OTIC DROP 0.25 ML RIGHT EAR (10:56)
== END 2018-11-19 15:55 | DRG 156 ==
LOC: MS1 11-16 07:52 → E/R 13:21 → TEL 14:01
PROC: 09C37ZZ Extirpation of Matter from Right External Auditory Canal, Via Natural or Artificial Opening (ICD-10-PCS; principal; 2018-11-17)
DX: H60.90 Unspecified otitis externa, unspecified ear (principal); R42 Dizziness and giddiness; R51 Headache; H61.21 Impacted cerumen, right ear; I10 Essential (primary) hypertension; M47.812 Spondylosis without myelopathy or radiculopathy, cervical region; M06.9 Rheumatoid arthritis, unspecified; Z86.718 Personal history of other venous thrombosis and embolism; Z79.52 Long term (current) use of systemic steroids; Z79.01 Long term (current) use of anticoagulants
CPT/HCPCS: 70450; 71045; 72125; 72141; 80048; 80053; 80061; 81001; 83036; 83735; 84100; 84443; 85025; 85610; 85730; 87081; 92610; 93005; 99285-25

== ENCOUNTER 2018-11-24 09:37 | Inpatient (IN) | payer OTHER ==
[2018-11-24] MEDS: LORAZEPAM 2 MG INJ IV ×2 (10:06→12:29)
[2018-11-24] MEDS: KETOROLAC 15 MG INJ IV (10:06)
[2018-11-24] MEDS: SOD CHLORIDE 0.9% 1,000 ML IV ×2 (10:07→15:43)
[2018-11-24 10:25] LABS: ADD MAN DIFF? NO
[2018-11-24 10:27] LABS: BASOPHIL # 0.1 10^3/ul (0.0-0.1); BASOPHILS % 0.5 % (0.0-2.0); EOSINOPHILS # 0.1 10^3/ul (0.0-0.5); EOSINOPHILS % 1.1 % (0.0-7.0); HEMATOCRIT 43.7 % (37.0-47.0); LYMPHOCYTES % 30.2 % (15.0-51.0); MEAN CORPUSCULAR HEMOGLOBIN 30.6 pg (29.0-33.0); MEAN CORPUSCULAR VOLUME 95.4 fl (82.0-101.0); MEAN PLATELET VOLUME 8.9 fl (7.4-10.4); MONOCYTE # 0.8 10^3/ul (0.3-0.9); MONOCYTES % 7.5 % (0.0-11.0); NEUTROPHIL # 5.8 10^3/ul (1.6-7.5); NEUTROPHILS % 58.6 % (39.0-77.0); PLATELET COUNT 293 10^3/UL (140-415); RED BLOOD COUNT 4.58 10^6/ul (4.20-5.40); RED CELL DISTRIBUTION WIDTH 13.6 % (11.5-14.5)
[2018-11-24 10:47] LABS: ALANINE AMINOTRANSFERASE 20 IU/L (13-69); ALBUMIN 3.4 g/dl (3.3-4.9); ALBUMIN/GLOBULIN RATIO 1.09; ALKALINE PHOSPHATASE 107 IU/L (42-121); ANION GAP 10 (5-13); ASPARTATE AMINO TRANSFERASE 28 IU/L (15-46); BILIRUBIN,INDIRECT 0.4 mg/dl (0-1.1); BILIRUBIN,TOTAL 0.4 mg/dl (0.2-1.3); BLOOD UREA NITROGEN 13 mg/dl (7-20); CALCIUM 9.5 mg/dl (8.4-10.2); CARBON DIOXIDE 26 mmol/L (21-31); CHLORIDE 103 mmol/L (97-110); CREATININE 0.47 mg/dl (0.44-1.00); GLUCOSE 84 mg/dl (70-220); LIPASE 32 U/L (23-300); POTASSIUM 4.1 mmol/L (3.5-5.1); SODIUM 139 mmol/L (135-144); TOTAL PROTEIN 6.5 g/dl (6.1-8.1)
[2018-11-24 11:48] LABS: ADD UMIC YES; UR ASCORBIC ACID NEGATIVE (NEGATIVE); UR BACTERIA MANY /HPF (NONE SEEN); UR BILIRUBIN (Dip) NEGATIVE (NEGATIVE); UR BLOOD (Dip) 2+ mg/dL (NEGATIVE); UR CLARITY CLOUDY (CLEAR); UR COLOR YELLOW (YELLOW); UR GLUCOSE (Dip) NEGATIVE (NEGATIVE); UR HYALINE CAST FEW /HPF (NONE SEEN); UR KETONES (Dip) TRACE mg/dL (NEGATIVE); UR LEUKOCYTE ESTERASE (Dip) 3+ Leu/ul (NEGATIVE); UR MUCUS FEW /HPF (NONE SEEN); UR NITRITE (Dip) POSITIVE (NEGATIVE); UR RBC 86 /HPF (0-5); UR SPECIFIC GRAVITY (Dip) 1.016 (1.003-1.030); UR SQUAMOUS EPITHELIAL CELL FEW /HPF (FEW); UR TOTAL PROTEIN (Dip) NEGATIVE (NEGATIVE); UR UROBILINOGEN (Dip) 1+ mg/dL (NEGATIVE); UR WBC > 182 /HPF (0-5)
[2018-11-24] MEDS: CEFEPIME 1GM/50 ML (PMX) 50 ML IVPB (12:04)
[2018-11-24] MEDS ORDERED: ONDANSETRON 4 MG INJ IV (14:30)
[2018-11-24] MEDS ORDERED: DOCUSATE SODIUM 100 MG CAP PO (14:30)
[2018-11-24] MEDS ORDERED: NACL 0.9% 3 ML SYG IV (14:30)
[2018-11-24 15:06] LABS: CREATINE KINASE 33 IU/L (23-200)
[2018-11-24 15:19] LABS: CK INDEX 4.4; CK-MB 1.46 ng/ml (0.0-2.4); TROPONIN-I < 0.012 ng/ml (0.000-0.120)
[2018-11-24] MEDS: HALOPERIDOL 5 MG INJ IV (15:30)
[2018-11-24] MEDS: CELECOXIB 100 MG CAP PO ×2 (15:30→21:38)
[2018-11-24 15:49] LABS: AMPHETAMINE/METHAMPHETAMINE NEGATIVE (NEGATIVE); BARBITURATES NEGATIVE (NEGATIVE); BENZODIAZEPINES NEGATIVE (NEGATIVE); CANNABINOIDS NEGATIVE (NEGATIVE); COCAINE NEGATIVE (NEGATIVE)
[2018-11-24 15:50] LABS: OPIATES POSITIVE (NEGATIVE)
[2018-11-24] MEDS: SENNA TAB PO (21:38)
[2018-11-24] MEDS: DOCUSATE SODIUM 100 MG CAP PO (21:38)
[2018-11-24] MEDS: MEROPENEM 1 GM/50ML(PMX) 50 ML IVPB (21:38)
[2018-11-24 21:48] LABS: CREATINE KINASE 282 IU/L (23-200)
[2018-11-24 22:00] LABS: CK INDEX 1.2; CK-MB 3.48 ng/ml (0.0-2.4); TROPONIN-I 0.022 ng/ml (0.000-0.120)
[2018-11-25] MEDS: SOD CHLORIDE 0.9% 1,000 ML IV ×2 (05:12→15:10)
[2018-11-25] MEDS: PANTOPRAZOLE (EC) 40 MG TAB PO ×2 (06:00→06:31)
[2018-11-25 06:40] LABS: ADD MAN DIFF? NO
[2018-11-25 07:00] LABS: BASOPHILS % 0.3 % (0.0-2.0); EOSINOPHILS # 0.1 10^3/ul (0.0-0.5); EOSINOPHILS % 0.6 % (0.0-7.0); HEMATOCRIT 35.9 % (37.0-47.0); HEMOGLOBIN 11.7 g/dl (12.0-16.0); LYMPHOCYTES % 19.4 % (15.0-51.0); MEAN CORPUSCULAR HEMOGLOBIN 30.7 pg (29.0-33.0); MEAN CORPUSCULAR HGB CONC 32.6 g/dl (32.0-37.0); MEAN CORPUSCULAR VOLUME 94.2 fl (82.0-101.0); MEAN PLATELET VOLUME 9.4 fl (7.4-10.4); MONOCYTE # 0.9 10^3/ul (0.3-0.9); MONOCYTES % 8.6 % (0.0-11.0); NEUTROPHILS % 69.7 % (39.0-77.0); PLATELET COUNT 275 10^3/UL (140-415); RED BLOOD COUNT 3.81 10^6/ul (4.20-5.40); RED CELL DISTRIBUTION WIDTH 13.7 % (11.5-14.5)
[2018-11-25 07:00] LABS: WHITE BLOOD COUNT 10.1 10^3/ul (4.8-10.8)
[2018-11-25 07:05] LABS: HEMOGLOBIN A1C 5.1 % (0-5.9)
[2018-11-25 07:25] LABS: ALANINE AMINOTRANSFERASE 19 IU/L (13-69); ALBUMIN/GLOBULIN RATIO 1.03; ALKALINE PHOSPHATASE 89 IU/L (42-121); ANION GAP 16 (5-13); ASPARTATE AMINO TRANSFERASE 32 IU/L (15-46); BILIRUBIN,INDIRECT 0.6 mg/dl (0-1.1); BILIRUBIN,TOTAL 0.6 mg/dl (0.2-1.3); BLOOD UREA NITROGEN 6 mg/dl (7-20); CALCIUM 8.9 mg/dl (8.4-10.2); CARBON DIOXIDE 20 mmol/L (21-31); CHLORIDE 106 mmol/L (97-110); CHOL/HDL RATIO 2.7 RATIO; CHOLESTEROL 142 mg/dl (100-200); CREATININE 0.37 mg/dl (0.44-1.00); GLUCOSE 53 mg/dl (70-220); HDL CHOLESTEROL 51 mg/dl (33-92); LDL CHOLESTEROL,CALCULATED 70 mg/dl; MAGNESIUM 1.9 mg/dl (1.7-2.5); PHOSPHORUS 2.7 mg/dl (2.5-4.9); POTASSIUM 3.5 mmol/L (3.5-5.1); SODIUM 142 mmol/L (135-144); TOTAL PROTEIN 5.9 g/dl (6.1-8.1); TRIGLYCERIDES 106 mg/dl (0-149)
[2018-11-25 07:48] LABS: THYROID STIMULATING HORMONE 0.513 MIU/L (0.465-4.680)
[2018-11-25] MEDS: MEROPENEM 1 GM/50ML(PMX) 50 ML IVPB ×2 (09:00→22:26)
[2018-11-25] MEDS: POLYETHYLENE GLYCOL 17 GM PACKET PO (09:00)
[2018-11-25] MEDS: HYDROXYCHLOROQUINE 200 MG TAB PO (09:00)
[2018-11-25] MEDS: DOCUSATE SODIUM 100 MG CAP PO ×2 (09:00→22:27)
[2018-11-25] MEDS: ENOXAPARIN 40 MG/0.4 ML SYG SC (09:00)
[2018-11-25] MEDS: CELECOXIB 100 MG CAP PO ×2 (09:35→22:27)
[2018-11-25] MEDS: AMLODIPINE 2.5 MG TAB PO (09:35)
[2018-11-25] MEDS: IBUPROFEN 400 MG TAB PO (18:21)
[2018-11-25] MEDS: SENNA TAB PO (22:27)
[2018-11-26] MEDS: SOD CHLORIDE 0.9% 1,000 ML IV (01:16)
[2018-11-26] MEDS: IBUPROFEN 400 MG TAB PO ×3 (04:42→17:42)
[2018-11-26] MEDS: PANTOPRAZOLE (EC) 40 MG TAB PO (06:23)
[2018-11-26 07:27] LABS: ADD MAN DIFF? NO
[2018-11-26 07:43] LABS: WHITE BLOOD COUNT 10.7 10^3/ul (4.8-10.8)
[2018-11-26 07:43] LABS: BASOPHIL # 0.1 10^3/ul (0.0-0.1); BASOPHILS % 0.5 % (0.0-2.0); EOSINOPHILS # 0.1 10^3/ul (0.0-0.5); HEMATOCRIT 34.7 % (37.0-47.0); HEMOGLOBIN 11.5 g/dl (12.0-16.0); LYMPHOCYTES # 1.8 10^3/ul (0.8-2.9); LYMPHOCYTES % 16.9 % (15.0-51.0); MEAN CORPUSCULAR HEMOGLOBIN 30.7 pg (29.0-33.0); MEAN CORPUSCULAR HGB CONC 33.1 g/dl (32.0-37.0); MEAN CORPUSCULAR VOLUME 92.5 fl (82.0-101.0); MEAN PLATELET VOLUME 9.2 fl (7.4-10.4); MONOCYTE # 0.9 10^3/ul (0.3-0.9); MONOCYTES % 8.5 % (0.0-11.0); NEUTROPHIL # 7.7 10^3/ul (1.6-7.5); NEUTROPHILS % 71.9 % (39.0-77.0); PLATELET COUNT 269 10^3/UL (140-415); RED BLOOD COUNT 3.75 10^6/ul (4.20-5.40); RED CELL DISTRIBUTION WIDTH 13.7 % (11.5-14.5)
[2018-11-26 07:52] LABS: ANION GAP 14 (5-13); BLOOD UREA NITROGEN 4 mg/dl (7-20); CALCIUM 8.8 mg/dl (8.4-10.2); CARBON DIOXIDE 21 mmol/L (21-31); CHLORIDE 107 mmol/L (97-110); CREATININE 0.34 mg/dl (0.44-1.00); GLUCOSE 85 mg/dl (70-220); POTASSIUM 3.1 mmol/L (3.5-5.1); SODIUM 142 mmol/L (135-144)
[2018-11-26] MEDS: MEROPENEM 1 GM/50ML(PMX) 50 ML IVPB ×2 (09:40→20:58)
[2018-11-26] MEDS: CELECOXIB 100 MG CAP PO ×2 (10:30→20:59)
[2018-11-26] MEDS: AMLODIPINE 2.5 MG TAB PO (10:30)
[2018-11-26] MEDS: HYDROXYCHLOROQUINE 200 MG TAB PO (10:31)
[2018-11-26] MEDS: DOCUSATE SODIUM 100 MG CAP PO ×2 (10:31→21:00)
[2018-11-26] MEDS: ENOXAPARIN 40 MG/0.4 ML SYG SC (10:40)
[2018-11-26] MEDS: POLYETHYLENE GLYCOL 17 GM PACKET PO (10:40)
[2018-11-26] MEDS ORDERED: PENDING SANTYL ORDER FOR WOUND CARE XX (13:00)
[2018-11-26] MEDS: POTASSIUM CHLORIDE (SR) 20 MEQ TAB PO (15:24)
[2018-11-26] MEDS: D5W-0.45 NACL + KCL 20 MEQ 1,000 ML IV (15:24)
[2018-11-26] MEDS: LORAZEPAM 2 MG INJ IV (17:47)
[2018-11-26] MEDS: SENNA TAB PO (21:00)
[2018-11-27] MEDS: IBUPROFEN 400 MG TAB PO (03:02)
[2018-11-27] MEDS: ACETAMINOPHEN 325 MG TAB PO (03:50)
[2018-11-27] MEDS: D5W-0.45 NACL + KCL 20 MEQ 1,000 ML IV ×2 (04:50→12:41)
[2018-11-27] MEDS: PANTOPRAZOLE (EC) 40 MG TAB PO (06:40)
[2018-11-27 06:54] LABS: ANION GAP 10 (5-13); BLOOD UREA NITROGEN 2 mg/dl (7-20); CALCIUM 9.1 mg/dl (8.4-10.2); CARBON DIOXIDE 24 mmol/L (21-31); CHLORIDE 108 mmol/L (97-110); CREATININE 0.38 mg/dl (0.44-1.00); GLUCOSE 124 mg/dl (70-220); POTASSIUM 3.3 mmol/L (3.5-5.1); SODIUM 142 mmol/L (135-144)
[2018-11-27] MEDS: MEROPENEM 1 GM/50ML(PMX) 50 ML IVPB ×2 (08:45→20:30)
[2018-11-27] MEDS: CELECOXIB 100 MG CAP PO ×2 (08:45→20:31)
[2018-11-27] MEDS: HYDROXYCHLOROQUINE 200 MG TAB PO (08:46)
[2018-11-27] MEDS: DOCUSATE SODIUM 100 MG CAP PO ×2 (08:46→20:31)
[2018-11-27] MEDS: AMLODIPINE 2.5 MG TAB PO (08:46)
[2018-11-27] MEDS: HYDROCODONE/APAP (5/325) TAB PO ×2 (08:47→12:42)
[2018-11-27] MEDS: POLYETHYLENE GLYCOL 17 GM PACKET PO (09:00)
[2018-11-27] MEDS: ENOXAPARIN 40 MG/0.4 ML SYG SC (09:01)
[2018-11-27] MEDS: traMADol 50 MG TAB PO ×2 (16:59→23:13)
[2018-11-27] MEDS: SENNA TAB PO (20:31)
[2018-11-28] MEDS: HYDROCODONE/APAP (5/325) TAB PO ×2 (04:44→11:06)
[2018-11-28] MEDS: D5W-0.45 NACL + KCL 20 MEQ 1,000 ML IV (04:45)
[2018-11-28] MEDS: PANTOPRAZOLE (EC) 40 MG TAB PO (06:25)
[2018-11-28] MEDS: MEROPENEM 1 GM/50ML(PMX) 50 ML IVPB (08:34)
[2018-11-28] MEDS: traMADol 50 MG TAB PO (08:35)
[2018-11-28] MEDS: DOCUSATE SODIUM 100 MG CAP PO (09:00)
[2018-11-28] MEDS: POLYETHYLENE GLYCOL 17 GM PACKET PO (09:00)
[2018-11-28] MEDS: HYDROXYCHLOROQUINE 200 MG TAB PO (09:20)
[2018-11-28] MEDS: CELECOXIB 100 MG CAP PO (09:20)
[2018-11-28] MEDS: ENOXAPARIN 40 MG/0.4 ML SYG SC (09:21)
[2018-11-28] MEDS: AMLODIPINE 2.5 MG TAB PO (09:23)
[2018-11-28] MEDS: IBUPROFEN 400 MG TAB PO (13:38)
== END 2018-11-28 15:55 | DRG 689 ==
LOC: E/R 09:37 → PP2 12:02
DX: N39.0 Urinary tract infection, site not specified (principal); G92 Toxic encephalopathy; G44.229 Chronic tension-type headache, not intractable; I10 Essential (primary) hypertension; F03.90 Unspecified dementia, unspecified severity, without behavioral disturbance, psychotic disturbance, mood disturbance, and anxiety; Z74.01 Bed confinement status; M06.9 Rheumatoid arthritis, unspecified; G89.4 Chronic pain syndrome; M81.0 Age-related osteoporosis without current pathological fracture; M19.90 Unspecified osteoarthritis, unspecified site; F41.9 Anxiety disorder, unspecified; B96.20 Unspecified Escherichia coli [E. coli] as the cause of diseases classified elsewhere; E86.0 Dehydration; Z86.73 Personal history of transient ischemic attack (TIA), and cerebral infarction without residual deficits
CPT/HCPCS: 36415; 70450; 70551; 71045; 80048; 80053; 80061; 80307; 81001; 82550; 82553; 83036; 83690; 83735; 84100; 84443; 84484; 85025; 87040; 87081; 87086; 92610; 93880; 96374; 96375; 99285-25

== ENCOUNTER 2018-12-05 12:49 | Inpatient (IN) | payer OTHER ==
[2018-12-05 13:39] LABS: ADD MAN DIFF? NO
[2018-12-05] MEDS: METOCLOPRAMIDE 10 MG INJ IV (13:39)
[2018-12-05] MEDS: SOD CHLORIDE 0.9% 1,000 ML IV (13:39)
[2018-12-05] MEDS: DIPHENHYDRAMINE 50 MG INJ IV (13:39)
[2018-12-05] MEDS: morphine 2 MG INJ IV ×2 (13:39→19:56)
[2018-12-05 13:42] LABS: WHITE BLOOD COUNT 12.4 10^3/ul (4.8-10.8)
[2018-12-05 13:43] LABS: BASOPHIL # 0.1 10^3/ul (0.0-0.1); BASOPHILS % 0.5 % (0.0-2.0); HEMATOCRIT 38.9 % (37.0-47.0); HEMOGLOBIN 12.9 g/dl (12.0-16.0); LYMPHOCYTES # 2.5 10^3/ul (0.8-2.9); LYMPHOCYTES % 20.3 % (15.0-51.0); MEAN CORPUSCULAR HEMOGLOBIN 30.7 pg (29.0-33.0); MEAN CORPUSCULAR HGB CONC 33.2 g/dl (32.0-37.0); MEAN CORPUSCULAR VOLUME 92.6 fl (82.0-101.0); MEAN PLATELET VOLUME 8.7 fl (7.4-10.4); MONOCYTE # 0.7 10^3/ul (0.3-0.9); MONOCYTES % 5.3 % (0.0-11.0); NEUTROPHIL # 9.1 10^3/ul (1.6-7.5); NEUTROPHILS % 72.9 % (39.0-77.0); PLATELET COUNT 348 10^3/UL (140-415); RED CELL DISTRIBUTION WIDTH 14.3 % (11.5-14.5)
[2018-12-05 14:02] LABS: ALANINE AMINOTRANSFERASE 20 IU/L (13-69); ALBUMIN 3.4 g/dl (3.3-4.9); ALKALINE PHOSPHATASE 119 IU/L (42-121); ANION GAP 14 (5-13); ASPARTATE AMINO TRANSFERASE 37 IU/L (15-46); BILIRUBIN,INDIRECT 0.3 mg/dl (0-1.1); BILIRUBIN,TOTAL 0.3 mg/dl (0.2-1.3); BLOOD UREA NITROGEN 18 mg/dl (7-20); CALCIUM 10.2 mg/dl (8.4-10.2); CARBON DIOXIDE 24 mmol/L (21-31); CHLORIDE 101 mmol/L (97-110); GLUCOSE 162 mg/dl (70-220); LIPASE 85 U/L (23-300); POTASSIUM 3.5 mmol/L (3.5-5.1); SODIUM 139 mmol/L (135-144); TOTAL PROTEIN 6.8 g/dl (6.1-8.1)
[2018-12-05 14:13] LABS: TROPONIN-I < 0.012 ng/ml (0.000-0.120)
[2018-12-05 15:11] LABS: ADD UMIC YES; UR ASCORBIC ACID NEGATIVE (NEGATIVE); UR BACTERIA FEW /HPF (NONE SEEN); UR BILIRUBIN (Dip) NEGATIVE (NEGATIVE); UR BLOOD (Dip) NEGATIVE (NEGATIVE); UR CLARITY SLIGHTLY CLOUDY (CLEAR); UR COLOR AMBER (YELLOW); UR GLUCOSE (Dip) NEGATIVE (NEGATIVE); UR KETONES (Dip) 1+ mg/dL (NEGATIVE); UR LEUKOCYTE ESTERASE (Dip) TRACE Leu/ul (NEGATIVE); UR MUCUS FEW /HPF (NONE SEEN); UR NITRITE (Dip) NEGATIVE (NEGATIVE); UR RBC 2 /HPF (0-5); UR SPECIFIC GRAVITY (Dip) 1.026 (1.003-1.030); UR SQUAMOUS EPITHELIAL CELL MODERATE /HPF (FEW); UR TOTAL PROTEIN (Dip) 1+ mg/dl (NEGATIVE); UR UROBILINOGEN (Dip) NEGATIVE (NEGATIVE); UR WBC 6 /HPF (0-5)
[2018-12-05] MEDS: KETOROLAC 30 MG INJ IV (17:11)
[2018-12-05 18:54] LABS: INR 0.91; PROTIME 12.4 Sec (11.9-14.9)
[2018-12-05 18:55] LABS: PARTIAL THROMBOPLASTIN TIME 38.6 Sec (23.0-35.0)
[2018-12-05] MEDS ORDERED: MAGNESIUM HYDROXIDE 30ML CUP PO (19:00)
[2018-12-05] MEDS ORDERED: ALBUTEROL/IPRATROPIUM (NEB) 3 ML AMP HHN (19:00)
[2018-12-05] MEDS ORDERED: DOCUSATE SODIUM 100 MG CAP PO (19:00)
[2018-12-05] MEDS ORDERED: ACETAMINOPHEN 325 MG TAB PO (19:00)
[2018-12-05] MEDS ORDERED: NITROGLYCERIN (SL) 0.4 MG TAB SL (19:00)
[2018-12-05] MEDS ORDERED: NACL 0.9% 3 ML SYG IV (19:00)
[2018-12-05] MEDS ORDERED: hydrALAzine 20 MG INJ IV (19:00)
[2018-12-05] MEDS ORDERED: LORAZEPAM 2 MG INJ IV (19:00)
[2018-12-05] MEDS ORDERED: ONDANSETRON 4 MG INJ IV (19:00)
[2018-12-05 19:24] LABS: FREE T4 (FREE THYROXINE) 2.18 ng/dl (0.78-2.44)
[2018-12-05] MEDS: ONDANSETRON 4 MG INJ IV (19:56)
[2018-12-05] MEDS: HYDROCODONE/APAP (5/325) TAB PO (22:04)
[2018-12-05] MEDS: SOD CHLORIDE 0.45% 1,000 ML IV (22:08)
[2018-12-06] MEDS: ONDANSETRON 4 MG INJ IV ×3 (02:20→13:31)
[2018-12-06] MEDS: morphine 2 MG INJ IV ×4 (03:03→21:28)
[2018-12-06 05:37] LABS: ADD MAN DIFF? NO
[2018-12-06 05:47] LABS: BASOPHIL # 0.1 10^3/ul (0.0-0.1); BASOPHILS % 0.4 % (0.0-2.0); EOSINOPHILS # 0.1 10^3/ul (0.0-0.5); EOSINOPHILS % 0.6 % (0.0-7.0); HEMATOCRIT 35.6 % (37.0-47.0); HEMOGLOBIN 11.6 g/dl (12.0-16.0); LYMPHOCYTES # 1.8 10^3/ul (0.8-2.9); LYMPHOCYTES % 15.1 % (15.0-51.0); MEAN CORPUSCULAR HEMOGLOBIN 30.6 pg (29.0-33.0); MEAN CORPUSCULAR HGB CONC 32.6 g/dl (32.0-37.0); MEAN CORPUSCULAR VOLUME 93.9 fl (82.0-101.0); MEAN PLATELET VOLUME 9.1 fl (7.4-10.4); MONOCYTE # 0.8 10^3/ul (0.3-0.9); MONOCYTES % 6.5 % (0.0-11.0); NEUTROPHIL # 9.2 10^3/ul (1.6-7.5); NEUTROPHILS % 76.7 % (39.0-77.0); PLATELET COUNT 297 10^3/UL (140-415); RED BLOOD COUNT 3.79 10^6/ul (4.20-5.40); RED CELL DISTRIBUTION WIDTH 14.6 % (11.5-14.5)
[2018-12-06 05:57] LABS: CHOLESTEROL 134 mg/dl (100-200)
[2018-12-06 05:57] LABS: CHOL/HDL RATIO 2.6 RATIO; HDL CHOLESTEROL 50 mg/dl (33-92); LDL CHOLESTEROL,CALCULATED 60 mg/dl; TRIGLYCERIDES 121 mg/dl (0-149)
[2018-12-06 06:05] LABS: ANION GAP 12 (5-13); BLOOD UREA NITROGEN 18 mg/dl (7-20); CALCIUM 9.2 mg/dl (8.4-10.2); CARBON DIOXIDE 23 mmol/L (21-31); CHLORIDE 105 mmol/L (97-110); GLUCOSE 84 mg/dl (70-220); MAGNESIUM 1.7 mg/dl (1.7-2.5); PHOSPHORUS 3.6 mg/dl (2.5-4.9); POTASSIUM 3.3 mmol/L (3.5-5.1); SODIUM 140 mmol/L (135-144)
[2018-12-06] MEDS ORDERED: CIPROFLOXACIN 400MG/D5W 200 ML IVPB (09:00)
[2018-12-06] MEDS: NITROFURANTOIN (SR) 100 MG CAP PO ×2 (10:43→22:54)
[2018-12-06] MEDS: SOD CHLORIDE 0.45% 1,000 ML IV ×2 (10:44→21:15)
[2018-12-06] MEDS: ACETAMINOPHEN 325 MG TAB PO (11:53)
[2018-12-06] MEDS ORDERED: BISACODYL 10 MG SUPP PR (12:30)
[2018-12-06] MEDS ORDERED: BISACODYL (EC) 5 MG TAB PO (12:30)
[2018-12-06] MEDS ORDERED: ENALAPRILAT 1.25 MG INJ IV (12:30)
[2018-12-06] MEDS: LIDOCAINE 5% PATCH TD (13:20)
[2018-12-06] MEDS: FAMOTIDINE 20 MG TAB PO ×2 (13:20→21:28)
[2018-12-06] MEDS: GABAPENTIN 100 MG CAP PO ×2 (13:20→21:28)
[2018-12-06] MEDS: POTASSIUM CHLORIDE 20 MEQ POWDER FOR ORAL SOLN PO (13:20)
[2018-12-07] MEDS: SOD CHLORIDE 0.45% 1,000 ML IV (02:05)
[2018-12-07] MEDS: morphine 2 MG INJ IV ×5 (02:06→20:53)
[2018-12-07 06:08] LABS: ADD MAN DIFF? NO
[2018-12-07 06:17] LABS: WHITE BLOOD COUNT 11.7 10^3/ul (4.8-10.8)
[2018-12-07 06:17] LABS: BASOPHIL # 0.1 10^3/ul (0.0-0.1); BASOPHILS % 0.5 % (0.0-2.0); EOSINOPHILS # 0.1 10^3/ul (0.0-0.5); EOSINOPHILS % 0.6 % (0.0-7.0); HEMATOCRIT 34.2 % (37.0-47.0); HEMOGLOBIN 11.1 g/dl (12.0-16.0); LYMPHOCYTES # 1.8 10^3/ul (0.8-2.9); LYMPHOCYTES % 15.4 % (15.0-51.0); MEAN CORPUSCULAR HEMOGLOBIN 30.7 pg (29.0-33.0); MEAN CORPUSCULAR HGB CONC 32.5 g/dl (32.0-37.0); MEAN CORPUSCULAR VOLUME 94.7 fl (82.0-101.0); MEAN PLATELET VOLUME 8.6 fl (7.4-10.4); MONOCYTE # 0.7 10^3/ul (0.3-0.9); MONOCYTES % 6.2 % (0.0-11.0); NEUTROPHILS % 76.5 % (39.0-77.0); PLATELET COUNT 281 10^3/UL (140-415); RED BLOOD COUNT 3.61 10^6/ul (4.20-5.40); RED CELL DISTRIBUTION WIDTH 14.4 % (11.5-14.5)
[2018-12-07 06:34] LABS: PHOSPHORUS 2.9 mg/dl (2.5-4.9)
[2018-12-07 06:34] LABS: LIPASE 21 U/L (23-300); MAGNESIUM 1.6 mg/dl (1.7-2.5)
[2018-12-07 06:40] LABS: ALANINE AMINOTRANSFERASE 19 IU/L (13-69); ALBUMIN 2.7 g/dl (3.3-4.9); ALBUMIN/GLOBULIN RATIO 0.96; ALKALINE PHOSPHATASE 91 IU/L (42-121); ANION GAP 11 (5-13); ASPARTATE AMINO TRANSFERASE 27 IU/L (15-46); BILIRUBIN,INDIRECT 0.4 mg/dl (0-1.1); BILIRUBIN,TOTAL 0.4 mg/dl (0.2-1.3); BLOOD UREA NITROGEN 10 mg/dl (7-20); CALCIUM 9.1 mg/dl (8.4-10.2); CARBON DIOXIDE 20 mmol/L (21-31); CHLORIDE 105 mmol/L (97-110); CREATININE 0.43 mg/dl (0.44-1.00); POTASSIUM 3.7 mmol/L (3.5-5.1); SODIUM 136 mmol/L (135-144); TOTAL PROTEIN 5.5 g/dl (6.1-8.1)
[2018-12-07 06:54] LABS: GLUCOSE 45 mg/dl (70-220)
[2018-12-07] MEDS: DEXTROSE 5%-0.45% NACL 1,000 ML IV ×2 (07:53→23:36)
[2018-12-07] MEDS: SENNA/DOCUSATE NA (8.6MG/50MG) TAB PO (09:10)
[2018-12-07] MEDS: FAMOTIDINE 20 MG TAB PO ×2 (09:10→20:54)
[2018-12-07] MEDS: NITROFURANTOIN (SR) 100 MG CAP PO ×2 (09:10→20:54)
[2018-12-07] MEDS: POTASSIUM CHLORIDE 20 MEQ POWDER FOR ORAL SOLN PO (09:10)
[2018-12-07] MEDS: LIDOCAINE 5% PATCH TD (09:10)
[2018-12-07] MEDS: GABAPENTIN 100 MG CAP PO ×3 (09:10→20:54)
[2018-12-07] MEDS: ENOXAPARIN 40 MG/0.4 ML SYG SC (09:11)
[2018-12-07] MEDS: ONDANSETRON 4 MG INJ IV ×2 (09:20→23:45)
[2018-12-08] MEDS: morphine 2 MG INJ IV ×4 (01:39→14:47)
[2018-12-08 06:29] LABS: ADD MAN DIFF? NO
[2018-12-08 06:34] LABS: WHITE BLOOD COUNT 9.7 10^3/ul (4.8-10.8)
[2018-12-08 06:34] LABS: BASOPHIL # 0.1 10^3/ul (0.0-0.1); BASOPHILS % 0.6 % (0.0-2.0); EOSINOPHILS # 0.2 10^3/ul (0.0-0.5); HEMATOCRIT 34.7 % (37.0-47.0); HEMOGLOBIN 11.3 g/dl (12.0-16.0); LYMPHOCYTES # 2.6 10^3/ul (0.8-2.9); LYMPHOCYTES % 26.6 % (15.0-51.0); MEAN CORPUSCULAR HEMOGLOBIN 30.9 pg (29.0-33.0); MEAN CORPUSCULAR HGB CONC 32.6 g/dl (32.0-37.0); MEAN CORPUSCULAR VOLUME 94.8 fl (82.0-101.0); MONOCYTE # 0.7 10^3/ul (0.3-0.9); MONOCYTES % 7.2 % (0.0-11.0); NEUTROPHIL # 6.1 10^3/ul (1.6-7.5); NEUTROPHILS % 62.8 % (39.0-77.0); PLATELET COUNT 300 10^3/UL (140-415); RED BLOOD COUNT 3.66 10^6/ul (4.20-5.40); RED CELL DISTRIBUTION WIDTH 14.2 % (11.5-14.5)
[2018-12-08 07:06] LABS: ANION GAP 7 (5-13); BLOOD UREA NITROGEN 5 mg/dl (7-20); CALCIUM 9.1 mg/dl (8.4-10.2); CARBON DIOXIDE 25 mmol/L (21-31); CHLORIDE 102 mmol/L (97-110); CREATININE 0.38 mg/dl (0.44-1.00); GLUCOSE 129 mg/dl (70-220); POTASSIUM 3.5 mmol/L (3.5-5.1); SODIUM 134 mmol/L (135-144)
[2018-12-08 07:10] LABS: MAGNESIUM 1.7 mg/dl (1.7-2.5)
[2018-12-08 07:10] LABS: PHOSPHORUS 2.6 mg/dl (2.5-4.9)
[2018-12-08] MEDS: NITROFURANTOIN (SR) 100 MG CAP PO (09:26)
[2018-12-08] MEDS: GABAPENTIN 100 MG CAP PO ×2 (09:26→13:45)
[2018-12-08] MEDS: FAMOTIDINE 20 MG TAB PO (09:27)
[2018-12-08] MEDS: POTASSIUM CHLORIDE 20 MEQ POWDER FOR ORAL SOLN PO (09:27)
[2018-12-08] MEDS: SENNA/DOCUSATE NA (8.6MG/50MG) TAB PO (09:30)
[2018-12-08] MEDS: ENOXAPARIN 40 MG/0.4 ML SYG SC (09:30)
[2018-12-08] MEDS: LIDOCAINE 5% PATCH TD (09:32)
[2018-12-08] MEDS: DEXTROSE 5%-0.45% NACL 1,000 ML IV (10:48)
[2018-12-08] MEDS: ONDANSETRON 4 MG INJ IV (11:28)
== END 2018-12-08 16:30 | DRG 392 ==
LOC: E/R 12:49 → PP2 18:34
DX: R10.9 Unspecified abdominal pain (principal); N39.0 Urinary tract infection, site not specified; M48.56XA Collapsed vertebra, not elsewhere classified, lumbar region, initial encounter for fracture; M48.54XA Collapsed vertebra, not elsewhere classified, thoracic region, initial encounter for fracture; M32.9 Systemic lupus erythematosus, unspecified; M06.9 Rheumatoid arthritis, unspecified; F41.9 Anxiety disorder, unspecified; M19.90 Unspecified osteoarthritis, unspecified site; K80.20 Calculus of gallbladder without cholecystitis without obstruction; K57.90 Diverticulosis of intestine, part unspecified, without perforation or abscess without bleeding; K59.00 Constipation, unspecified; G44.201 Tension-type headache, unspecified, intractable; I10 Essential (primary) hypertension; G60.9 Hereditary and idiopathic neuropathy, unspecified; R11.2 Nausea with vomiting, unspecified; R62.7 Adult failure to thrive; Z68.28 Body mass index [BMI] 28.0-28.9, adult; Z87.440 Personal history of urinary (tract) infections; Z86.718 Personal history of other venous thrombosis and embolism; Z86.73 Personal history of transient ischemic attack (TIA), and cerebral infarction without residual deficits
CPT/HCPCS: 36415; 70450; 71045; 72131; 74176; 80048; 80053; 80061; 81001; 82306; 82962; 83036; 83605; 83690; 83735; 84100; 84439; 84443; 84484; 85025; 85610; 85730; 87081; 87086; 93005; 96374; 96375; 99285-25